=== PATIENT | male | born 1955 | race Caucasian/White ===

== ENCOUNTER → 2023-02-17 | Outpatient (CLI) | payer MEDICARE ==
--- NOTE | 2023-02-17 11:25 | NM ---
EXAMINATION TYPE: NM stress cardiolite complete DATE OF EXAM: 02/17/2023 COMPARISON: NONE HISTORY: Chest pain TECHNIQUE: After the intravenous administration of 10.4 mCi Tc 99m Sestamibi - Rest images obtained 45 minutes post injection. The patient exercised using a CHAMP protocol and 1 minute prior to peak exercise was injected with 25.7 mCi Tc 99m Sestamibi - Stress images obtained 15 minutes post injecti on. FINDINGS: Targeted heart rate was achieved during performance of the study. Review of stress and rest SPECT kristi ges demonstrates no distinct perfusion abnormality. Gated analysis shows normal wall motion with an estimated left ventricular ejection fraction of 65 %. IMPRESSION: No scintigraphic evidence for reversible ischemia
--- NOTE | 2023-02-17 13:26 | CA ---
Exercise Nuclear Stress Test Report Name: Kayode Silva Exam Date: 02/17/2023 09:19 Exam Location: [facility] Stress Ht (in): 72 Wt (lb): 245 BSA: 2.32 Ordering Phys: Angela Cuellar MD Referring Phys: ANGELA CUELLAR,, Technologist: Fan Chavarria Age: 67 Gender: M : 1955 Procedure CPT: Indications: R93.1 abnormal findings imaging of heart ICD-10 Codes: Patient History: Medications: ZETIA, LOSARTAN, PRAVASTATIN, ASPIRIN, FISH OIL Meds past 24 hrs: Pretest Chest Pain: STRESS TEST Polo Protocol Exercise Duration (min:sec): 06:[address] Depressions (mm): Angina Score: Ruvalcaba Score: Resting HR (bpm): 63 Peak HR (bpm): 154 Resting BP (mmHg): 160 / 92 Peak BP (mmHg): 153 / 81 MPHR: 154 Target HR: 131 % MPHR: 100 METS: 8.0 Total Dose: Peak Dose: Atropine: Double Product: [id number] BP Response: Stress Termination: Reached target heart rate Stress Symptoms: NO SYMPTOMS Stress Summary: ECG ANALYSIS Resting ECG: Stress ECG: CONCLUSIONS Patient underwent exercise stress Cardiolite with a Polo protocol treadmill stress test. Patient exercised into Stage 2 for a total of 6 minutes and 30 seconds reaching a total of 8.0 METS. Patient's maximum heart rate was 154 which represented 100% age-predicted maximum heart rate. Stress EKG findings: At baseline patient's EKG showed normal sinus rhythm, normal axis, Q-wave in lead 3 and [address]VF without significant ST or T wave abnormalities. At peak exercise, EKG showed mild nondiagnostic 0.[address] depressions in the inferior and lateral leads. Conclusions: 1. Normal EKG response to exercise without evidence of inducible ischemia. 2. Fair exercise capacity. 3. Nuclear portion to be reported separately. Dr. Caleb Myers DO (Electronically Signed) Final Date: 17 February 2023 13:25
== END | disposition home or self-care (01) ==
LOC: RADNMMAIN 07:51
PROVIDERS: ATTEND Internal Medicine
DX: R93.1 Abnormal findings on diagnostic imaging of heart and coronary circulation (principal)
CPT/HCPCS: 93017; 78452; A9500